=== PATIENT | male | born 1960 | race Caucasian/White ===

== ENCOUNTER 2018-09-21 02:20 | Inpatient (IN) | payer OTHER ==
[~2018-09-21] VITALS: Ht 172.7 cm; Wt 60.5 kg
[2018-09-21 05:34] VITALS: BP 128/88
[2018-09-21] MEDS ORDERED: FURO10DI PO (06:11)
[2018-09-21] MEDS ORDERED: ASPI-621 PO (06:11)
[2018-09-21] MEDS ORDERED: MAGN250T8 PO (06:13)
[2018-09-21 07:25] VITALS: BP 112/64
[2018-09-21] MEDS: LISINOPRIL 10 MG TABLET PO SCH (09:21)
[2018-09-21] MEDS: TAMSULOSIN 0.4 MG CAP.ER.24H PO SCH (09:21)
[2018-09-21] MEDS: MAGNESIUM OXIDE 400 MG TABLET PO SCH (09:21)
[2018-09-21] MEDS: POTASSIUM CHLORIDE 20 MEQ TAB.ER.PRT PO SCH (09:21)
[2018-09-21] MEDS: FUROSEMIDE 40 MG/4 ML IV SCH ×2 (09:21→17:51)
[2018-09-21] MEDS: ASPIRIN 81 MG TABLET EC PO SCH (09:21)
[2018-09-21] MEDS: ENOXAPARIN 40 MG/0.4 ML SQ SCH (09:22)
[2018-09-21 09:58] LABS: BASOPHILS # (AUTO) 0.06 x10^3/uL (0-0.1); BASOPHILS % (AUTO) 1 % (0-1); EOSINOPHILS # (AUTO) 0.22 x10^3/uL (0-0.4); EOSINOPHILS % (AUTO) 2 % (1-7); LYMPHOCYTES # (AUTO) 1.61 x10^3/uL (1-3.4); LYMPHOCYTES % (AUTO) 16 % (22-44); MD NO; MEAN CORPUSCULAR HEMOGLOBIN 31.6 pg (27.5-34.5); MEAN CORPUSCULAR HGB CONC 32.9 g/dL (33.2-36.2); MEAN CORPUSCULAR VOLUME 95.9 fL (81-97); MEAN PLATELET VOLUME 9.1 fL (7.4-10.4); MONOCYTES # (AUTO) 0.88 x10^3/uL (0.2-0.8); MONOCYTES % (AUTO) 9 % (2-9); NEUTROPHILS # (AUTO) 7.12 x10^3/uL (1.8-6.8); NEUTROPHILS % (AUTO) 72 % (42-75); PLATELET COUNT 185 x10^3/uL (130-400); RED BLOOD COUNT 3.97 x10^6/uL (4.38-5.82); RED CELL DISTRIBUTION WIDTH 14.7 % (9.4-14.8)
[2018-09-21 10:06] LABS: ANION GAP 6 mmol/L (5-15); CALCIUM 8.2 mg/dL (8.5-10.1); CHLORIDE 108 mmol/L (98-107)
[2018-09-21 12:50] VITALS: BP 110/80
[2018-09-21 20:18] VITALS: BP 123/70
[2018-09-21] MEDS ORDERED: ATORVASTATIN 80 MG TABLET PO SCH (21:00)
[2018-09-22 02:21] VITALS: BP 115/78
[2018-09-22 04:49] LABS: BASOPHILS # (AUTO) 0.07 x10^3/uL (0-0.1); BASOPHILS % (AUTO) 1 % (0-1); EOSINOPHILS # (AUTO) 0.31 x10^3/uL (0-0.4); EOSINOPHILS % (AUTO) 3 % (1-7); LYMPHOCYTES # (AUTO) 2.12 x10^3/uL (1-3.4); LYMPHOCYTES % (AUTO) 18 % (22-44); MD NO; MEAN CORPUSCULAR HEMOGLOBIN 31.8 pg (27.5-34.5); MEAN CORPUSCULAR HGB CONC 33.3 g/dL (33.2-36.2); MEAN CORPUSCULAR VOLUME 95.5 fL (81-97); MEAN PLATELET VOLUME 8.7 fL (7.4-10.4); MONOCYTES # (AUTO) 1.16 x10^3/uL (0.2-0.8); MONOCYTES % (AUTO) 10 % (2-9); NEUTROPHILS # (AUTO) 7.94 x10^3/uL (1.8-6.8); NEUTROPHILS % (AUTO) 69 % (42-75); PLATELET COUNT 186 x10^3/uL (130-400); RED BLOOD COUNT 4.35 x10^6/uL (4.38-5.82); RED CELL DISTRIBUTION WIDTH 14.6 % (9.4-14.8)
[2018-09-22 05:00] LABS: ANION GAP 5 mmol/L (5-15); CALCIUM 8.2 mg/dL (8.5-10.1); CHLORIDE 106 mmol/L (98-107); CHOLESTEROL, TOTAL 118 mg/dL (140-239); CREATININE 1.14 mg/dL (0.7-1.3)
[2018-09-22 05:02] LABS: CHOL/HDL RATIO 2.1; HDL CHOL % 47 % (26-37); HDL CHOLESTEROL (DIRECT) 56 mg/dL (40-60); LDL CHOLESTEROL,CALCULATED 52 mg/dL (54-169); LDL/HDL RATIO 0.9 (0.5-3.0); TRIGLYCERIDES 52 mg/dL (50-200); VLDL CHOLESTEROL 10 mg/dL (0-25)
[2018-09-22 05:31] VITALS: BP 141/97
[2018-09-22] MEDS ORDERED: METOPROLOL SUCCINATE 100 MG TAB.ER.24H PO SCH (06:00)
[2018-09-22 06:33] VITALS: BP 127/89
[2018-09-22] MEDS ORDERED: ALBU90AE PO (07:44)
[2018-09-22] MEDS ORDERED: ATOR-2 PO (07:44)
[2018-09-22] MEDS ORDERED: TAMS0.4C2 PO (07:44)
[2018-09-22] MEDS ORDERED: METO200T47 PO (07:44)
[2018-09-22] MEDS ORDERED: FURO-93 PO (07:44)
[2018-09-22] MEDS ORDERED: MAGN400T26 PO (07:44)
[2018-09-22] MEDS ORDERED: LISI-167 PO (07:44)
[2018-09-22] MEDS: MAGNESIUM OXIDE 400 MG TABLET PO SCH (09:11)
[2018-09-22] MEDS: ASPIRIN 81 MG TABLET EC PO SCH (09:11)
[2018-09-22] MEDS: POTASSIUM CHLORIDE 20 MEQ TAB.ER.PRT PO SCH (09:11)
[2018-09-22] MEDS: TAMSULOSIN 0.4 MG CAP.ER.24H PO SCH (09:11)
[2018-09-22] MEDS: FUROSEMIDE 40 MG/4 ML IV SCH (09:12)
[2018-09-22] MEDS: LISINOPRIL 10 MG TABLET PO SCH (09:12)
[2018-09-22] MEDS: ENOXAPARIN 40 MG/0.4 ML SQ SCH (09:13)
[2018-09-22] MEDS ORDERED: POTA20TA14 PO (10:45)
== END 2018-09-22 12:30 | disposition home or self-care (01) | DRG 293 ==
LOC: EDBD 05:29 → 5SO 05:29
PROVIDERS: ADMIT Hospitalist; ATTEND Hospitalist
DX: I11.0 Hypertensive heart disease with heart failure (principal); F12.20 Cannabis dependence, uncomplicated; F17.200 Nicotine dependence, unspecified, uncomplicated; J44.9 Chronic obstructive pulmonary disease, unspecified; G89.29 Other chronic pain; M54.5 Low back pain; E78.5 Hyperlipidemia, unspecified; I25.10 Atherosclerotic heart disease of native coronary artery without angina pectoris; I25.5 Ischemic cardiomyopathy; I25.2 Old myocardial infarction; Z99.81 Dependence on supplemental oxygen; Z95.5 Presence of coronary angioplasty implant and graft; Z95.810 Presence of automatic (implantable) cardiac defibrillator; Z79.899 Other long term (current) drug therapy; Z79.82 Long term (current) use of aspirin; I50.23 Acute on chronic systolic (congestive) heart failure; Z86.19 Personal history of other infectious and parasitic diseases
CPT/HCPCS: 36415; 80048; 80061; 83735; 83880; 84100; 84443; 85025; C8929; G0378; J1650; J1940; Q9957

== ENCOUNTER → 2019-12-31 | Outpatient (CLI) | payer OTHER ==
[~2019-12-31] MED LIST: ALBU90AE PO; ASPI81TA45 PO; ATOR-2 PO; FURO-93 PO; FURO10DI PO; LISI-167 PO; MAGN250T8 PO; MAGN400T26 PO; METO200T47 PO; POTA20TA14 PO; TAMS0.4C2 PO
== END | disposition home or self-care (01) ==
LOC: PETCFH 09:09
PROVIDERS: ATTEND Nurse Practitioner
DX: C34.11 Malignant neoplasm of upper lobe, right bronchus or lung (principal); R91.8 Other nonspecific abnormal finding of lung field; J43.8 Other emphysema; J98.11 Atelectasis; N20.0 Calculus of kidney; I51.7 Cardiomegaly
CPT/HCPCS: 78815; A9552